=== PATIENT | female | born 1970 | race Caucasian/White ===

== ENCOUNTER → 2016-09-08 16:53 | Outpatient (CLI) | payer BC ==
[2014-09-13 09:27] VITALS: BMI 33.5
[~2016-09-08 16:53] MED LIST: CALCIUM 600+D T1 TA1 PO; CRANBERRY475 MG PO; CYCLOBENZAPRINE10 MG PO; EFFEXOR75 MG PO; KEFLEX500 MG PO; MYRBETRIQ50 MG PO; NIACIN250 M1 PO; NORCO 7.5/325 T1 TA1 PO; PERCOCET 10/3251 TA1 PO; PRILOSEC20 MG PO; SANCTURA20 MG PO; TOPROL XL25 MG PO; VITAMIN B-12500 MCG PO
== END | disposition home or self-care (01) ==
LOC: D.MAMMO 14:30
DX: Z12.31 Encounter for screening mammogram for malignant neoplasm of breast (principal)

== ENCOUNTER → 2017-06-01 07:21 | Outpatient (CLI) | payer BC ==
[2014-09-13 09:27] VITALS: BMI 33.5
== END | disposition home or self-care (01) ==
LOC: D.MRI 07:21
DX: M25.511 Pain in right shoulder (principal)

== ENCOUNTER 2018-04-29 08:00 | Outpatient (CLI) | payer BC ==
[2014-09-13 09:27] VITALS: BMI 33.5
== END 2018-04-29 09:00 | disposition home or self-care (01) ==
LOC: D.MAMMO 08:00
DX: Z12.31 Encounter for screening mammogram for malignant neoplasm of breast (principal)